=== PATIENT | male | born 1995 | race Caucasian/White ===

== ENCOUNTER 2023-12-19 00:08 | Emergency (ER) | payer MEDICAID ==
[~2023-12-19] VITALS: Ht 434.3 cm; Wt 108.9 kg
[2023-12-19] MEDS ORDERED: CYCL10TA9 PO (00:54)
[2023-12-19] MEDS ORDERED: IBUP-1957 PO (00:55)
[2023-12-19 00:59] VITALS: BP 156/84; O2SAT 100
== END 2023-12-19 00:59 | disposition home or self-care (01) ==
LOC: ER 00:24
DX: R03.0 Elevated blood-pressure reading, without diagnosis of hypertension (principal); S39.012A Strain of muscle, fascia and tendon of lower back, initial encounter; Z79.1 Long term (current) use of non-steroidal anti-inflammatories (NSAID); X50.1XXA Overexertion from prolonged static or awkward postures, initial encounter; Y93.89 Activity, other specified; Y92.89 Other specified places as the place of occurrence of the external cause; Y99.8 Other external cause status
CPT/HCPCS: A4606; A4663